=== PATIENT | male | born 1950 | race Caucasian/White ===

== ENCOUNTER 2018-07-25 11:57 | Inpatient (IN) | payer MEDICARE, MEDICAID ==
[~2018-07-25] VITALS: Ht 185.4 cm; Wt 77.7 kg
[2018-07-25] MEDS ORDERED: SODIUM CHLORIDE 0.9% 1,000 ML IV ONE ×2 (12:08)
[2018-07-25 14:20] LABS: Basophils # (auto) 0 uL; Basophils % (auto) 0.3 % (0.0-2.0); Eosinophils # (auto) 0.1 uL; Eosinophils % (auto) 0.7 % (0.0-7.0); Hematocrit 38.9 % (41.0-53.0); Hemoglobin 13.5 g/dL (13.5-17.5); Lymphocytes # (auto) 1.9 uL; Lymphocytes % (auto) 16.8 % (10.0-50.0); Mean Corpuscular Hemoglobin 32.3 pg (28.0-32.0); Mean Corpuscular Hgb Conc. 34.7 g/dL (32.0-36.0); Mean Corpuscular Volume 93.1 fL (80.0-100.0); Monocytes # (auto) 0.8 uL; Monocytes % (auto) 6.9 % (0.0-12.0); Neutrophils # (auto) 8.4 uL; Neutrophils % (auto) 75.3 % (37.0-80.0); Platelet Count (auto) 400 10^3/uL (140-450); Red Blood Cells 4.18 10^6/uL (4.5-5.90); Red Cell Distribution Width 13.6 % (11.8-14.3); White Blood Cell 11.2 10^3/uL (4.4-10.8)
[2018-07-25 14:35] LABS: INR 0.93 (0.9-1.15); Partial Thromboplastin Time 24.8 sec (23.78-33.04)
[2018-07-25 14:45] LABS: Alanine Aminotransferase 28 U/L (16-61); Albumin 3.4 g/dL (3.4-5.0); Alkaline Phosphatase 97 U/L (45-117); Anion Gap 7 (5-15); Aspartate Aminotransferase 12 U/L (15-37); BUN/Creatinine Ratio 10.7; Bilirubin, Total 0.4 mg/dL (0.2-1.0); Blood Urea Nitrogen 12 mg/dL (7-18); Calcium 8.7 mg/dL (8.5-10.1); Carbon Dioxide 27 mmol/L (21-32); Chloride 106 mmol/L (98-107); GFR African American 84 mL/min; GFR Non-African American 69 mL/min; Glucose 264 mg/dL (74-106); Potassium 3.9 mmol/L (3.5-5.1); Sodium 140 mmol/L (136-145); Total Protein 6.9 g/dL (6.4-8.2)
[2018-07-25] MEDS ORDERED: VANCOMYCIN 1GM/250ML 250 ML IV ONE (16:00)
[2018-07-25] MEDS ORDERED: PIPERACILLIN-TAZOB 3.375GM 100 ML IV ONE (16:00)
[2018-07-25] MEDS ORDERED: NITROGLYCERIN 0.4 MG SL TAB SL PRN (17:00)
[2018-07-25] MEDS ORDERED: DOCUSATE SOD 100 MG CAP PO PRN (17:00)
[2018-07-25] MEDS ORDERED: ACETAMINOPHEN 325 MG TAB PO PRN (17:00)
[2018-07-25] MEDS ORDERED: MORPHINE SULF INJ 2 MG/ML SYRINGE 1ML IV PRN (17:00)
[2018-07-25] MEDS ORDERED: DEXTROSE (50%) 50ML SYRG IV PRN (17:00)
[2018-07-25] MEDS ORDERED: cefTRIAXone 1GM/10ml IVPUSH 10 ML IV ONE (17:00)
[2018-07-25] MEDS ORDERED: TEMAZEPAM 15 MG CAP PO PRN (17:00)
[2018-07-25] MEDS ORDERED: ONDANSETRON HCL 4 MG/2 ML VIAL IV PRN (17:00)
[2018-07-25] MEDS ORDERED: cloNIDine HCL 0.1 MG TAB PO PRN (17:00)
[2018-07-25] MEDS: ACCU-CHEK COMFORT CURVE STRIP VI SCH ×2 (18:27→22:00)
[2018-07-25] MEDS: InsuLIN REG 1unit/0.01ml Soln (100units/ml) SC SCH (18:27)
[2018-07-25] MEDS: glipiZIDE 5 MG TAB PO SCH (18:34)
[2018-07-25 22:00] VITALS: BP 137/75
[2018-07-25] MEDS ORDERED: InsuLIN REG 1unit/0.01ml Soln (100units/ml) SC SCH (22:00)
[2018-07-25] MEDS: MORPHINE SULF INJ 2 MG/ML SYRINGE 1ML IV PRN (23:06)
[2018-07-25] MEDS: CLINDAMYCIN 300MG IV 50 ML IV SCH (23:23)
[2018-07-25] MEDS: SODIUM CHLOR 0.9% PF (SALINE LOCK) 10ML VIAL/SYR IV SCH (23:24)
[2018-07-25] MEDS: ATORVASTATIN 20 MG TAB PO SCH (23:24)
[2018-07-25] MEDS: GABAPENTIN 300 MG CAP PO SCH (23:25)
[2018-07-25] MEDS: ASCORBIC ACID 500 MG TAB PO SCH (23:25)
[2018-07-25] MEDS: CARBIDOPA W LEVODOPA 25/100mg TABLET PO SCH (23:25)
[2018-07-26 01:59] LABS: Urine WBC None Seen /hpf (0 - 3)
[2018-07-26 02:18] LABS: Urine Bacteria NONE SEEN /hpf (None Seen); Urine Blood Negative /uL (Negative); Urine Specific Gravity 1.007 (1.001-1.035)
[2018-07-26 04:38] VITALS: BP 122/74
[2018-07-26 06:06] LABS: Basophils # (auto) 0 uL; Basophils % (auto) 0.4 % (0.0-2.0); Eosinophils # (auto) 0.3 uL; Eosinophils % (auto) 3.3 % (0.0-7.0); Hematocrit 37.2 % (41.0-53.0); Hemoglobin 12.8 g/dL (13.5-17.5); Lymphocytes # (auto) 3.2 uL; Lymphocytes % (auto) 36.2 % (10.0-50.0); Mean Corpuscular Hgb Conc. 34.3 g/dL (32.0-36.0); Mean Corpuscular Volume 93.3 fL (80.0-100.0); Monocytes # (auto) 0.8 uL; Monocytes % (auto) 9.1 % (0.0-12.0); Neutrophils # (auto) 4.6 uL; Platelet Count (auto) 347 10^3/uL (140-450); Red Blood Cells 3.98 10^6/uL (4.5-5.90); Red Cell Distribution Width 13.6 % (11.8-14.3)
[2018-07-26] MEDS: CLINDAMYCIN 300MG IV 50 ML IV SCH ×3 (06:06→22:12)
[2018-07-26] MEDS: SODIUM CHLOR 0.9% PF (SALINE LOCK) 10ML VIAL/SYR IV SCH ×3 (06:06→22:13)
[2018-07-26] MEDS: GABAPENTIN 300 MG CAP PO SCH ×3 (06:07→22:12)
[2018-07-26 06:29] LABS: Albumin 2.8 g/dL (3.4-5.0); BUN/Creatinine Ratio 11.9; Bilirubin, Total 0.3 mg/dL (0.2-1.0); Calcium 7.7 mg/dL (8.5-10.1); Potassium 3.5 mmol/L (3.5-5.1)
[2018-07-26] MEDS: ACCU-CHEK COMFORT CURVE STRIP VI SCH ×4 (06:58→22:18)
[2018-07-26] MEDS: InsuLIN REG 1unit/0.01ml Soln (100units/ml) SC SCH ×4 (07:00→22:18)
[2018-07-26] MEDS: glipiZIDE 5 MG TAB PO SCH ×2 (07:41→18:00)
[2018-07-26 08:30] VITALS: BP 141/76
[2018-07-26] MEDS: cefTRIAXone 1GM/10ml IVPUSH 10 ML IV SCH (09:21)
[2018-07-26] MEDS: ZINC SULFATE 220mg CAP or TAB PO SCH (10:08)
[2018-07-26] MEDS: MULTIPLE VITAMIN TAB PO SCH (10:08)
[2018-07-26] MEDS: ASCORBIC ACID 500 MG TAB PO SCH ×2 (10:08→22:12)
[2018-07-26] MEDS: CARBIDOPA W LEVODOPA 25/100mg TABLET PO SCH ×2 (10:08→22:12)
[2018-07-26] MEDS: ASPirin-EC 81 mg tab PO SCH (10:08)
[2018-07-26 11:51] VITALS: BP 148/76
[2018-07-26] MEDS: MORPHINE SULF INJ 2 MG/ML SYRINGE 1ML IV PRN (14:50)
[2018-07-26] MEDS ORDERED: DEXTROSE (50%) 50ML SYRG IV PRN (15:30)
[2018-07-26 16:37] VITALS: BP 124/65
[2018-07-26] MEDS: HYDROcodone-ACET 5/325MG TAB PO PRN ×2 (16:58→20:14)
[2018-07-26 22:00] VITALS: BP 125/61
[2018-07-26] MEDS: ATORVASTATIN 20 MG TAB PO SCH (22:12)
[2018-07-27 05:00] VITALS: BP 124/69
[2018-07-27] MEDS: CLINDAMYCIN 300MG IV 50 ML IV SCH ×3 (05:54→21:24)
[2018-07-27] MEDS: GABAPENTIN 300 MG CAP PO SCH ×3 (05:54→21:23)
[2018-07-27] MEDS: SODIUM CHLOR 0.9% PF (SALINE LOCK) 10ML VIAL/SYR IV SCH ×3 (05:54→21:24)
[2018-07-27] MEDS: glipiZIDE 5 MG TAB PO SCH ×2 (05:55→17:45)
[2018-07-27] MEDS: InsuLIN REG 1unit/0.01ml Soln (100units/ml) SC SCH ×4 (05:55→21:25)
[2018-07-27] MEDS: ACCU-CHEK COMFORT CURVE STRIP VI SCH ×4 (05:55→21:24)
[2018-07-27 06:44] LABS: Basophils # (auto) 0 uL; Basophils % (auto) 0.6 % (0.0-2.0); Eosinophils # (auto) 0.3 uL; Eosinophils % (auto) 3.1 % (0.0-7.0); Hematocrit 41.3 % (41.0-53.0); Hemoglobin 14.5 g/dL (13.5-17.5); Lymphocytes # (auto) 2.1 uL; Lymphocytes % (auto) 24.4 % (10.0-50.0); Mean Corpuscular Hemoglobin 32.6 pg (28.0-32.0); Mean Corpuscular Hgb Conc. 35.1 g/dL (32.0-36.0); Mean Corpuscular Volume 92.9 fL (80.0-100.0); Monocytes # (auto) 0.6 uL; Monocytes % (auto) 7.1 % (0.0-12.0); Neutrophils # (auto) 5.5 uL; Neutrophils % (auto) 64.8 % (37.0-80.0); Nucleated Red Blood Cells % 0.1 %; Platelet Count (auto) 386 10^3/uL (140-450); Red Blood Cells 4.45 10^6/uL (4.5-5.90); Red Cell Distribution Width 13.4 % (11.8-14.3); White Blood Cell 8.5 10^3/uL (4.4-10.8)
[2018-07-27 07:15] LABS: BUN/Creatinine Ratio 12.1; Calcium 8.5 mg/dL (8.5-10.1); Magnesium 2.8 mg/dL (1.6-2.6)
[2018-07-27] MEDS: cefTRIAXone 1GM/10ml IVPUSH 10 ML IV SCH (08:54)
[2018-07-27] MEDS: HYDROcodone-ACET 5/325MG TAB PO PRN ×3 (08:55→22:26)
[2018-07-27 09:00] VITALS: BP 127/71
[2018-07-27] MEDS: ASPirin-EC 81 mg tab PO SCH (09:24)
[2018-07-27] MEDS: ZINC SULFATE 220mg CAP or TAB PO SCH (09:24)
[2018-07-27] MEDS: MULTIPLE VITAMIN TAB PO SCH (09:24)
[2018-07-27] MEDS: CARBIDOPA W LEVODOPA 25/100mg TABLET PO SCH ×2 (09:25→21:23)
[2018-07-27] MEDS: ASCORBIC ACID 500 MG TAB PO SCH ×2 (09:25→21:24)
[2018-07-27] MEDS: MORPHINE SULF INJ 2 MG/ML SYRINGE 1ML IV PRN ×2 (10:37→16:44)
[2018-07-27 13:00] VITALS: BP 102/50
[2018-07-27 17:00] VITALS: BP 97/60
[2018-07-27] MEDS: Glucerna Carbsteady SHAKE Vanilla 8oz PO SCH (17:44)
[2018-07-27] MEDS: ATORVASTATIN 20 MG TAB PO SCH (21:23)
[2018-07-27 22:08] VITALS: BP 106/67
[2018-07-28 05:00] VITALS: BP 114/62
[2018-07-28] MEDS: SODIUM CHLOR 0.9% PF (SALINE LOCK) 10ML VIAL/SYR IV SCH ×2 (05:25→15:25)
[2018-07-28] MEDS: CLINDAMYCIN 300MG IV 50 ML IV SCH ×2 (05:25→14:00)
[2018-07-28] MEDS: GABAPENTIN 300 MG CAP PO SCH ×2 (05:25→15:25)
[2018-07-28] MEDS: glipiZIDE 5 MG TAB PO SCH (06:00)
[2018-07-28] MEDS: InsuLIN REG 1unit/0.01ml Soln (100units/ml) SC SCH ×2 (06:00→11:45)
[2018-07-28] MEDS: ACCU-CHEK COMFORT CURVE STRIP VI SCH ×2 (06:00→11:44)
[2018-07-28] MEDS: Glucerna Carbsteady SHAKE Vanilla 8oz PO SCH (08:00)
[2018-07-28 09:00] VITALS: BP 118/58
[2018-07-28] MEDS: cefTRIAXone 1GM/10ml IVPUSH 10 ML IV SCH (09:32)
[2018-07-28] MEDS: ZINC SULFATE 220mg CAP or TAB PO SCH (10:00)
[2018-07-28] MEDS: ASCORBIC ACID 500 MG TAB PO SCH (10:00)
[2018-07-28] MEDS: MULTIPLE VITAMIN TAB PO SCH (10:00)
[2018-07-28] MEDS: CARBIDOPA W LEVODOPA 25/100mg TABLET PO SCH (10:00)
[2018-07-28] MEDS: ASPirin-EC 81 mg tab PO SCH (10:30)
[2018-07-28] MEDS ORDERED: ANGIOMAX 250 MG VIAL IV ONE (12:47)
[2018-07-28] MEDS ORDERED: SODIUM CHL 0.9% 0 ML ONE (12:48)
[2018-07-28] MEDS ORDERED: MIDAZOLAM HCL 1MG/1ML-2 ML VIAL ONE (12:48)
[2018-07-28] MEDS ORDERED: IOHEXOL 350 MG/ML 100ML IJ ONE (12:48)
[2018-07-28] MEDS ORDERED: fentaNYL CITRATE 100 MCG/2 ML VL ONE (12:48)
[2018-07-28] MEDS ORDERED: LIDOCAINE 2%HCL (LOCAL ANESTH.) INJ 20ML MDV ONE (12:49)
[2018-07-28 13:00] VITALS: BP 112/67
[2018-07-28] MEDS ORDERED: MORPHINE SULF INJ 2 MG/ML SYRINGE 1ML IV PRN (14:15)
[2018-07-28] MEDS ORDERED: HYDROcodone-ACET 5/325MG TAB PO PRN (14:15)
[2018-07-28] MEDS ORDERED: CLIN1CAP4 PO (14:55)
[2018-07-28] MEDS ORDERED: SACC250C PO (14:55)
[2018-07-29] MEDS ORDERED: CARB25TA3 PO (20:01)
== END 2018-07-28 16:30 | disposition home health service (06) | DRG 872 ==
LOC: EDBD 11:57 → EDSEX 11:57 → ER 11:57 → TELE 11:58 → TELE-WESTW 19:23
PROVIDERS: ADMIT Internal Medicine; ATTEND Internal Medicine
PROC: B41G1ZZ Fluoroscopy of Left Lower Extremity Arteries using Low Osmolar Contrast (ICD-10-PCS; principal; 2018-07-28)
PROC: B41F1ZZ Fluoroscopy of Right Lower Extremity Arteries using Low Osmolar Contrast (ICD-10-PCS; 2018-07-28)
DX: A41.9 Sepsis, unspecified organism (principal); L03.116 Cellulitis of left lower limb; L97.429 Non-pressure chronic ulcer of left heel and midfoot with unspecified severity; L97.329 Non-pressure chronic ulcer of left ankle with unspecified severity; F32.9 Major depressive disorder, single episode, unspecified; N18.9 Chronic kidney disease, unspecified; I12.9 Hypertensive chronic kidney disease with stage 1 through stage 4 chronic kidney disease, or unspecified chronic kidney disease; I25.2 Old myocardial infarction; I25.10 Atherosclerotic heart disease of native coronary artery without angina pectoris; E11.21 Type 2 diabetes mellitus with diabetic nephropathy; E11.22 Type 2 diabetes mellitus with diabetic chronic kidney disease; J44.9 Chronic obstructive pulmonary disease, unspecified; E11.51 Type 2 diabetes mellitus with diabetic peripheral angiopathy without gangrene; E11.621 Type 2 diabetes mellitus with foot ulcer; E78.5 Hyperlipidemia, unspecified; F17.200 Nicotine dependence, unspecified, uncomplicated; G20 Parkinson's disease; I70.202 Unspecified atherosclerosis of native arteries of extremities, left leg; Z83.3 Family history of diabetes mellitus; Z88.0 Allergy status to penicillin; Z79.899 Other long term (current) drug therapy; Z95.0 Presence of cardiac pacemaker
CPT/HCPCS: 36415; 71046; 73700; 75716; 80048; 80053; 80061; 81001; 82962; 83036; 83605; 83735; 83880; 84443; 84484; 85025; 85610; 85730; 87040; 93306; 93926; 96361; 96365; 96367; 96372; 99152; A6257; J0696; J1815; J2250; J2543; J3490

== ENCOUNTER 2018-07-28 19:45 | Inpatient (IN) | payer MEDICARE, MEDICAID ==
[~2018-07-28] VITALS: Ht 185.4 cm; Wt 79.1 kg
[2018-07-28] MEDS: SODIUM CHLORIDE 0.9% 1,000 ML IV SCH (03:59)
[~2018-07-28 19:45] MED LIST: CLIN1CAP4 PO; SACC250C PO
[2018-07-28] MEDS ORDERED: SODIUM CHLORIDE 0.9% 1,000 ML IV ONE (20:45)
[2018-07-28] MEDS ORDERED: DIPHENOXYLATE W/ATROPINE 2.5 MG TAB PO ONE (20:45)
[2018-07-28 21:27] LABS: Basophils # (auto) 0.1 uL; Basophils % (auto) 0.4 % (0.0-2.0); Eosinophils # (auto) 0 uL; Eosinophils % (auto) 0.1 % (0.0-7.0); Hematocrit 41.8 % (41.0-53.0); Hemoglobin 14.2 g/dL (13.5-17.5); Lymphocytes % (auto) 7.3 % (10.0-50.0); Mean Corpuscular Hgb Conc. 33.9 g/dL (32.0-36.0); Mean Corpuscular Volume 94.4 fL (80.0-100.0); Monocytes # (auto) 0.5 uL; Monocytes % (auto) 3.6 % (0.0-12.0); Neutrophils # (auto) 11.8 uL; Neutrophils % (auto) 88.6 % (37.0-80.0); Nucleated Red Blood Cells % 0.1 %; Platelet Count (auto) 386 10^3/uL (140-450); Red Blood Cells 4.43 10^6/uL (4.5-5.90); Red Cell Distribution Width 13.7 % (11.8-14.3); White Blood Cell 13.3 10^3/uL (4.4-10.8)
[2018-07-28 21:46] LABS: CRP High Sensitivity 0.7 mg/dL (< 0.3); Magnesium 2.5 mg/dL (1.6-2.6)
[2018-07-28 21:56] LABS: Alanine Aminotransferase 35 U/L (16-61); Albumin 3.7 g/dL (3.4-5.0); Alkaline Phosphatase 95 U/L (45-117); Anion Gap 7 (5-15); Aspartate Aminotransferase 24 U/L (15-37); BUN/Creatinine Ratio 10.1; Bilirubin, Total 0.3 mg/dL (0.2-1.0); Blood Urea Nitrogen 16 mg/dL (7-18); Calcium 8.8 mg/dL (8.5-10.1); Carbon Dioxide 25 mmol/L (21-32); Chloride 106 mmol/L (98-107); GFR African American 56 mL/min; GFR Non-African American 46 mL/min; Glucose 305 mg/dL (74-106); Potassium 4.5 mmol/L (3.5-5.1); Sodium 138 mmol/L (136-145); Total Protein 7.5 g/dL (6.4-8.2)
[2018-07-28] MEDS ORDERED: DOCUSATE SOD 100 MG CAP PO PRN (23:45)
[2018-07-28] MEDS ORDERED: DEXTROSE (50%) 50ML SYRG IV PRN (23:45)
[2018-07-28] MEDS ORDERED: SODIUM CHLORIDE 0.9% 500 ML IV ONE (23:45)
[2018-07-28] MEDS ORDERED: LOPERAMIDE HCL 2 MG CAP PO PRN (23:45)
[2018-07-28] MEDS: ACCU-CHEK COMFORT CURVE STRIP VI SCH (23:45)
[2018-07-28] MEDS ORDERED: CARBIDOPA W LEVODOPA 25/100mg TABLET PO ONE (23:45)
[2018-07-28] MEDS ORDERED: ONDANSETRON HCL 4 MG/2 ML VIAL IV PRN (23:45)
[2018-07-29] MEDS: InsuLIN REG 1unit/0.01ml Soln (100units/ml) SC SCH ×5 (03:16→22:30)
[2018-07-29] MEDS: metroNIDAZOLE 500MG/100ML 100 ML IV SCH ×3 (06:06→20:19)
[2018-07-29] MEDS: ACCU-CHEK COMFORT CURVE STRIP VI SCH ×4 (06:15→22:30)
[2018-07-29 06:50] LABS: Basophils # (auto) 0.1 uL; Basophils % (auto) 0.6 % (0.0-2.0); Eosinophils # (auto) 0.1 uL; Eosinophils % (auto) 1.4 % (0.0-7.0); Hematocrit 35.7 % (41.0-53.0); Hemoglobin 12.4 g/dL (13.5-17.5); Lymphocytes # (auto) 2.8 uL; Lymphocytes % (auto) 29.5 % (10.0-50.0); Mean Corpuscular Hemoglobin 32.4 pg (28.0-32.0); Mean Corpuscular Hgb Conc. 34.6 g/dL (32.0-36.0); Mean Corpuscular Volume 93.5 fL (80.0-100.0); Monocytes # (auto) 0.9 uL; Monocytes % (auto) 9.1 % (0.0-12.0); Neutrophils # (auto) 5.6 uL; Neutrophils % (auto) 59.4 % (37.0-80.0); Nucleated Red Blood Cells % 0.1 %; Platelet Count (auto) 319 10^3/uL (140-450); Red Blood Cells 3.82 10^6/uL (4.5-5.90); Red Cell Distribution Width 13.8 % (11.8-14.3); White Blood Cell 9.4 10^3/uL (4.4-10.8)
[2018-07-29 07:10] LABS: Albumin 2.8 g/dL (3.4-5.0); Calcium 8.3 mg/dL (8.5-10.1)
[2018-07-29 07:12] LABS: BUN/Creatinine Ratio 17.9
[2018-07-29 07:15] LABS: Bilirubin, Total 0.3 mg/dL (0.2-1.0)
[2018-07-29] MEDS ORDERED: cefTRIAXone 1GM/10ml IVPUSH 10 ML IV SCH (09:00)
[2018-07-29] MEDS: FAMOTIDINE 20 MG TAB PO SCH ×2 (09:09→20:18)
[2018-07-29] MEDS: SODIUM CHLORIDE 0.9% 1,000 ML IV SCH ×2 (12:28→15:48)
[2018-07-29 12:56] VITALS: BP 135/74
[2018-07-29 16:17] VITALS: BP 128/62
[2018-07-29] MEDS ORDERED: CARB25TA3 PO (20:01)
[2018-07-29] MEDS: ATORVASTATIN 20 MG TAB PO SCH (20:18)
[2018-07-29] MEDS: HYDROcodone-ACET 5/325MG TAB PO PRN (20:18)
[2018-07-29] MEDS: ACETAMINOPHEN 325 MG TAB PO PRN (20:18)
[2018-07-29] MEDS: TEMAZEPAM 15 MG CAP PO PRN (20:19)
[2018-07-29 22:00] VITALS: BP 146/82
[2018-07-29] MEDS: CARBIDOPA W LEVODOPA 25/100mg TABLET PO SCH (22:00)
[2018-07-30] MEDS: HYDROcodone-ACET 5/325MG TAB PO PRN ×3 (00:10→19:54)
[2018-07-30] MEDS: ACETAMINOPHEN 325 MG TAB PO PRN (02:29)
[2018-07-30 05:00] VITALS: BP 138/72
[2018-07-30 05:25] LABS: Basophils # (auto) 0.1 uL; Basophils % (auto) 1.3 % (0.0-2.0); Eosinophils # (auto) 0.2 uL; Eosinophils % (auto) 2.9 % (0.0-7.0); Hematocrit 38.3 % (41.0-53.0); Hemoglobin 13.2 g/dL (13.5-17.5); Lymphocytes # (auto) 2.9 uL; Lymphocytes % (auto) 39.8 % (10.0-50.0); Mean Corpuscular Hemoglobin 32.4 pg (28.0-32.0); Mean Corpuscular Hgb Conc. 34.6 g/dL (32.0-36.0); Mean Corpuscular Volume 93.9 fL (80.0-100.0); Monocytes # (auto) 0.6 uL; Monocytes % (auto) 8.8 % (0.0-12.0); Neutrophils # (auto) 3.4 uL; Neutrophils % (auto) 47.2 % (37.0-80.0); Nucleated Red Blood Cells % 0.1 %; Platelet Count (auto) 315 10^3/uL (140-450); Red Blood Cells 4.08 10^6/uL (4.5-5.90); Red Cell Distribution Width 13.9 % (11.8-14.3); White Blood Cell 7.2 10^3/uL (4.4-10.8)
[2018-07-30 05:40] LABS: BUN/Creatinine Ratio 16.5; Calcium 8.3 mg/dL (8.5-10.1); Potassium 4.1 mmol/L (3.5-5.1)
[2018-07-30] MEDS: metroNIDAZOLE 500MG/100ML 100 ML IV SCH ×3 (06:22→21:59)
[2018-07-30] MEDS: CARBIDOPA W LEVODOPA 25/100mg TABLET PO SCH ×3 (06:22→21:59)
[2018-07-30] MEDS: ACCU-CHEK COMFORT CURVE STRIP VI SCH ×4 (06:29→23:27)
[2018-07-30] MEDS: InsuLIN REG 1unit/0.01ml Soln (100units/ml) SC SCH ×4 (06:29→23:27)
[2018-07-30] MEDS: SODIUM CHLORIDE 0.9% 1,000 ML IV SCH (08:43)
[2018-07-30 09:00] VITALS: BP 133/75
[2018-07-30] MEDS: FAMOTIDINE 20 MG TAB PO SCH ×2 (10:07→21:59)
[2018-07-30] MEDS ORDERED: ATOR20TA PO (11:51)
[2018-07-30] MEDS ORDERED: ASPI81TA27 PO (11:51)
[2018-07-30] MEDS ORDERED: GLIP-116 PO (11:51)
[2018-07-30 11:59] VITALS: BP 132/74
[2018-07-30 17:00] VITALS: BP 120/70
[2018-07-30 21:06] VITALS: BP 152/76
[2018-07-30] MEDS: ATORVASTATIN 20 MG TAB PO SCH (21:59)
[2018-07-31] MEDS: SODIUM CHLORIDE 0.9% 1,000 ML IV SCH ×2 (01:00→17:02)
[2018-07-31 04:37] VITALS: BP 110/57
[2018-07-31 05:40] LABS: Basophils # (auto) 0 uL; Eosinophils # (auto) 0.4 uL; Eosinophils % (auto) 5.7 % (0.0-7.0); Hematocrit 40.7 % (41.0-53.0); Hemoglobin 13.9 g/dL (13.5-17.5); Lymphocytes % (auto) 30.1 % (10.0-50.0); Mean Corpuscular Hemoglobin 32.2 pg (28.0-32.0); Mean Corpuscular Hgb Conc. 34.3 g/dL (32.0-36.0); Mean Corpuscular Volume 93.8 fL (80.0-100.0); Monocytes # (auto) 0.6 uL; Monocytes % (auto) 8.9 % (0.0-12.0); Neutrophils # (auto) 3.7 uL; Neutrophils % (auto) 55.3 % (37.0-80.0); Nucleated Red Blood Cells % 0.1 %; Platelet Count (auto) 312 10^3/uL (140-450); Red Blood Cells 4.33 10^6/uL (4.5-5.90); White Blood Cell 6.7 10^3/uL (4.4-10.8)
[2018-07-31] MEDS: ACCU-CHEK COMFORT CURVE STRIP VI SCH ×3 (05:44→17:40)
[2018-07-31] MEDS: InsuLIN REG 1unit/0.01ml Soln (100units/ml) SC SCH ×3 (05:44→17:39)
[2018-07-31] MEDS: CARBIDOPA W LEVODOPA 25/100mg TABLET PO SCH ×3 (05:44→22:39)
[2018-07-31] MEDS: metroNIDAZOLE 500MG/100ML 100 ML IV SCH (05:44)
[2018-07-31 05:58] LABS: BUN/Creatinine Ratio 14.3; Calcium 8.4 mg/dL (8.5-10.1); Potassium 3.8 mmol/L (3.5-5.1)
[2018-07-31 08:00] VITALS: BP 124/72
[2018-07-31] MEDS: FAMOTIDINE 20 MG TAB PO SCH ×2 (10:00→22:37)
[2018-07-31] MEDS: ASPirin-EC 81 mg tab PO SCH (16:25)
[2018-07-31 17:45] VITALS: BP 129/71
[2018-07-31 18:33] LABS: Cholesterol 129 mg/dL (< 200); HDL Cholesterol 37 mg/dL (40-59); LDL Cholesterol 88 mg/dL (< 100); Triglycerides 128 mg/dL (< 150)
[2018-07-31] MEDS: ATORVASTATIN 20 MG TAB PO SCH (22:37)
[2018-07-31] MEDS: HYDROcodone-ACET 5/325MG TAB PO PRN (22:38)
[2018-07-31] MEDS: TEMAZEPAM 15 MG CAP PO PRN (22:45)
[2018-08-01] MEDS: ACCU-CHEK COMFORT CURVE STRIP VI SCH ×4 (00:32→17:32)
[2018-08-01] MEDS: InsuLIN REG 1unit/0.01ml Soln (100units/ml) SC SCH ×4 (00:33→17:32)
[2018-08-01] MEDS ORDERED: MORPHINE SULF INJ 2 MG/ML SYRINGE 1ML IV ONE (02:30)
[2018-08-01 06:07] LABS: Basophils # (auto) 0.1 uL; Basophils % (auto) 0.8 % (0.0-2.0); Eosinophils # (auto) 0.2 uL; Eosinophils % (auto) 3.1 % (0.0-7.0); Hematocrit 41.9 % (41.0-53.0); Hemoglobin 14.5 g/dL (13.5-17.5); Lymphocytes % (auto) 37.3 % (10.0-50.0); Mean Corpuscular Hemoglobin 32.3 pg (28.0-32.0); Mean Corpuscular Hgb Conc. 34.6 g/dL (32.0-36.0); Mean Corpuscular Volume 93.5 fL (80.0-100.0); Monocytes # (auto) 0.7 uL; Monocytes % (auto) 8.2 % (0.0-12.0); Neutrophils # (auto) 4.1 uL; Neutrophils % (auto) 50.6 % (37.0-80.0); Nucleated Red Blood Cells % 0.1 %; Platelet Count (auto) 328 10^3/uL (140-450); Red Blood Cells 4.48 10^6/uL (4.5-5.90); Red Cell Distribution Width 13.9 % (11.8-14.3)
[2018-08-01 06:35] LABS: BUN/Creatinine Ratio 17.6; Calcium 8.8 mg/dL (8.5-10.1); Potassium 3.8 mmol/L (3.5-5.1)
[2018-08-01 07:51] VITALS: BP 137/74
[2018-08-01 09:08] LABS: Folate (Folic Acid) 14.62 ng/mL (5.38-24)
[2018-08-01] MEDS: CARBIDOPA W LEVODOPA 25/100mg TABLET PO SCH ×2 (09:30→21:45)
[2018-08-01] MEDS: ASPirin-EC 81 mg tab PO SCH (09:30)
[2018-08-01] MEDS: FAMOTIDINE 20 MG TAB PO SCH ×3 (09:32→21:44)
[2018-08-01] MEDS: SODIUM CHLORIDE 0.9% 1,000 ML IV SCH (09:32)
[2018-08-01] MEDS: HYDROcodone-ACET 5/325MG TAB PO PRN ×2 (11:24→20:31)
[2018-08-01 13:55] VITALS: BP 132/77
[2018-08-01 17:00] VITALS: BP 122/69
[2018-08-01] MEDS ORDERED: CYANOCOBALAMIN (B-12) 1000 MCG/1 ML VIAL IM ONE (19:00)
[2018-08-01] MEDS: ATORVASTATIN 20 MG TAB PO SCH (21:44)
[2018-08-01] MEDS: TEMAZEPAM 15 MG CAP PO PRN (21:48)
[2018-08-02] MEDS: InsuLIN REG 1unit/0.01ml Soln (100units/ml) SC SCH ×3 (00:22→12:03)
[2018-08-02] MEDS: ACCU-CHEK COMFORT CURVE STRIP VI SCH ×3 (00:23→11:28)
[2018-08-02] MEDS: HYDROcodone-ACET 5/325MG TAB PO PRN ×2 (00:24→06:22)
[2018-08-02] MEDS: SODIUM CHLORIDE 0.9% 1,000 ML IV SCH (02:35)
[2018-08-02 05:00] VITALS: BP 93/42
[2018-08-02 06:08] LABS: Basophils # (auto) 0 uL; Basophils % (auto) 0.6 % (0.0-2.0); Eosinophils # (auto) 0.2 uL; Eosinophils % (auto) 3.4 % (0.0-7.0); Hematocrit 39.2 % (41.0-53.0); Hemoglobin 13.8 g/dL (13.5-17.5); Lymphocytes # (auto) 2.6 uL; Lymphocytes % (auto) 36.2 % (10.0-50.0); Mean Corpuscular Hemoglobin 32.8 pg (28.0-32.0); Mean Corpuscular Hgb Conc. 35.1 g/dL (32.0-36.0); Mean Corpuscular Volume 93.3 fL (80.0-100.0); Monocytes # (auto) 0.7 uL; Monocytes % (auto) 9.3 % (0.0-12.0); Neutrophils # (auto) 3.6 uL; Neutrophils % (auto) 50.5 % (37.0-80.0); Nucleated Red Blood Cells % 0.1 %; Platelet Count (auto) 297 10^3/uL (140-450); Red Blood Cells 4.21 10^6/uL (4.5-5.90); White Blood Cell 7.1 10^3/uL (4.4-10.8)
[2018-08-02 06:19] LABS: BUN/Creatinine Ratio 18.5; Calcium 8.2 mg/dL (8.5-10.1); Potassium 3.9 mmol/L (3.5-5.1)
[2018-08-02 09:15] VITALS: BP 100/66
[2018-08-02] MEDS ORDERED: CYANOCOBALAMIN 500 MCG TAB PO SCH (10:00)
[2018-08-02] MEDS: ASPirin-EC 81 mg tab PO SCH (10:10)
[2018-08-02] MEDS: FAMOTIDINE 20 MG TAB PO SCH (10:10)
[2018-08-02] MEDS: CARBIDOPA W LEVODOPA 25/100mg TABLET PO SCH (10:10)
[2018-08-02 14:45] VITALS: BP 122/74
[2018-08-02 14:49] VITALS: BP 122/74
[2018-08-02] MEDS ORDERED: glipiZIDE 5 MG TAB PO SCH (18:00)
== END 2018-08-02 18:09 | disposition left against medical advice (07) | DRG 637 ==
LOC: ER 19:45 → OVERFLOW 19:46 → WEST WING 07-29 10:45
PROVIDERS: ADMIT Nurse Practitioner; ATTEND Internal Medicine
DX: E11.65 Type 2 diabetes mellitus with hyperglycemia (principal); N17.0 Acute kidney failure with tubular necrosis; E11.621 Type 2 diabetes mellitus with foot ulcer; F20.9 Schizophrenia, unspecified; E86.0 Dehydration; E78.5 Hyperlipidemia, unspecified; F17.210 Nicotine dependence, cigarettes, uncomplicated; F31.9 Bipolar disorder, unspecified; G20 Parkinson's disease; I10 Essential (primary) hypertension; F41.9 Anxiety disorder, unspecified; F22 Delusional disorders; I25.10 Atherosclerotic heart disease of native coronary artery without angina pectoris; Z53.21 Procedure and treatment not carried out due to patient leaving prior to being seen by health care provider; L97.529 Non-pressure chronic ulcer of other part of left foot with unspecified severity; Z79.82 Long term (current) use of aspirin; I25.2 Old myocardial infarction; Z79.899 Other long term (current) drug therapy; Z81.8 Family history of other mental and behavioral disorders; Z82.0 Family history of epilepsy and other diseases of the nervous system; Z82.49 Family history of ischemic heart disease and other diseases of the circulatory system; Z86.73 Personal history of transient ischemic attack (TIA), and cerebral infarction without residual deficits; Z83.3 Family history of diabetes mellitus
CPT/HCPCS: 36415; 70450; 80048; 80053; 80061; 82607; 82746; 82962; 83735; 84484; 85025; 86141; 93005; 96361; 96374; J0696; J1815; J3490